=== PATIENT | male | born 1955 | race African-American/Black ===

== ENCOUNTER 2020-04-23 09:14 | Day surgery (SDC) | payer OTHER ==
[~2020-04-23] VITALS: Ht 175.3 cm; Wt 81.6 kg
[2020-04-23 11:14] VITALS: BP 135/71; Ht 175.3 cm; Wt 81.6 kg
[2020-04-23] MEDS ORDERED: FERROUS SULFAT325 MG PO ×2 (11:26)
[2020-04-23] MEDS ORDERED: LIPITOR40 MG PO (11:26)
[2020-04-23] MEDS ORDERED: LIPITOR80 MG PO (11:26)
[2020-04-23] MEDS ORDERED: CHLORTHALIDONE25 MG PO (11:27)
[2020-04-23] MEDS ORDERED: METOPROLOL TART50 MG PO (11:27)
[2020-04-23] MEDS ORDERED: NORVASC10 MG PO (11:28)
[2020-04-23] MEDS ORDERED: HYDROCODON-ACE1 EA10 PO (11:29)
[2020-04-23] MEDS ORDERED: ARTIFICIAL TEARS (11:29)
[2020-04-23] MEDS ORDERED: OMEPRAZOLE20 M1 PO (11:29)
[2020-04-23] MEDS ORDERED: ZYLOPRIM300 MG PO (11:29)
[2020-04-23] MEDS ORDERED: BRILINTA90 MG PO (11:30)
[2020-04-23] MEDS ORDERED: COLACE100 MG PO (11:30)
[2020-04-23] MEDS ORDERED: ELIQUIS5 MG PO ×2 (11:31→11:32)
[2020-04-23 11:39] LABS: HEMATOCRIT 37.4 % (42.0-54.0); HEMOGLOBIN 12.2 g/dL (13.5-17.5); MCHC 32.6 g/dL (31.0-37.0); MCV 94.9 fL (80.0-100.0); MEAN PLATELET VOLUME 9.9 fL (7.4-10.4); RBC 3.94 10x6/uL (4.20-6.10); RDW 15.6 % (11.5-14.5); WBC 7.9 10x3/uL (4.8-10.8)
--- NOTE | 2020-04-23 14:06 | NUR ---
PATIENT DENIES PAIN AND FEELS THEIR ARM NUMB.
--- NOTE | 2020-04-24 09:21 | OP ---
PATIENT NAME: ADALBERTO PRETTY MEDICAL RECORD: [id number] :55 LOCATION:[facility] ADMISSION DATE: SURGEON: JADIEL MCALLISTER DO DATE OF OPERATION: 04/23/2020 PROCEDURE PERFORMED: Amputation of the right first, second, third and fourth fingers. PREOPERATIVE DIAGNOSIS: Gangrene of the right first, second, third and fourth fingers. POSTOPERATIVE DIAGNOSIS: Gangrene of the right first, second, third and fourth fingers. INDICATIONS: Mr. Pretty is a 64-year-old inmate who had an embolus apparently in the right upper extremity and it cut off the blood supply to those fingers and they were necrotic. I saw him several months ago as the necrosis started to set in. I told him we need to wait until it declared itself, it had and he wanted something done surgically as they were completely necrotic. The thumb was necrotic back to the proximal phalanx. The index finger, the long finger and the ring finger was to the middle phalanx. I amputated it appropriately at each site, the thumb at the proximal phalanx. I told him that I would amputate it at the appropriate length and try to keep the most length that I could. He was aware of that and was aware of the need for further surgery, infection, continued pain and phantom pain. He signed the consent. SURGEON: Jadiel Mcallister DO DESCRIPTION OF PROCEDURE: The patient was taken to the operative suite, laid in supine position, given general anesthetic, given 2 grams of Ancef preoperatively. The right upper extremity was then prepped and draped in sterile fashion. A timeout was performed and everyone was in agreeance with the correct side, site, patient and procedure. I then made the amputations first with the thumb at the proximal phalanx and I rongeured back the proximal phalanx up to close the skin over it. I repeated the process with the index and long fingers and at the ring finger, more at the middle phalanx. Jim Pretty, certified surgical animal assisted therapist closed the skin. The tourniquet was inflated for 19 minutes and was let down at the end of the procedure, that was put up to 250 mmHg at beginning. Jim Pretty closed each of the fingers with 4-0 Prolene in a horizontal mattress, vertical mattress and simple interrupted sutures. He was then dressed with Adaptic, 4 x 4s, Kerlix and then Solomon wrap over the whole hand. He was then awakened and taken to recovery in stable condition. BLOOD LOSS: Minimal. COMPLICATIONS: None. TRANSINT:[id number] Voice Confirmation ID: [id number] DOCUMENT ID: [id number] OPERATIVE REPORT [id number] ADALBERTO PRETTY MICHAEL D, DO at 0921 CC: [id number] DICTATION DATE: 04/23/20 1553 [facility] CONTROLLER: 04/23/20 1704 [facility] 04/23/20 [facility] [address] [place] [address]
== END 2020-04-23 15:00 | disposition home or self-care (01) ==
LOC: D.OPS 09:14
PROVIDERS: Anesthesiology; ATTEND Orthopaedic Surgery
DX: I96 Gangrene, not elsewhere classified (principal); M79.644 Pain in right finger(s); M79.641 Pain in right hand